=== PATIENT | female | born 1990 | race Caucasian/White ===

== ENCOUNTER 2024-08-09 10:07 | Emergency (ER) | payer SELFPAY ==
[2024-08-09 10:27] VITALS: BP 159/92; PULSE 93; RESP 15; TEMP 36.6; O2SAT 99; BMI 37.4
--- NOTE | 2024-08-09 14:14 | W.ED.BACK ---
HPI - Back Pain/Injury General: Chief Complaint: Back Pain/Injury Stated Complaint: back pain Time Seen by Provider: 08/09/24 11:23 Source: patient Mode of arrival: ambulatory Limitations: no limitations History of Present Illness: Patient is a 34-year-old female who presents to the ED today with a complaint of acute on chronic lower back pain. Patient states she recently moved from [place]. Patient states she has a longstanding history of lower back pain. Was doing physical therapy without relief. She states over the past several weeks she is now having pain radiating down her right leg and into her groin. She is not having any urinary retention or bowel incontinence. She feels like ambulating is getting harder. 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 She has not established with a primary care provider here in [place] yet. MD elicited complaint: back pain Pertinent past history: prior back pain Onset (ago): week(s) Timing: constant Severity: severe Similar Symptoms Previously: Yes Location: lumbar spine Radiation: buttocks and right upper leg Exacerbating factors: movement, walking and lifting Relieving factors: none Context: while lifting Associated symptoms: Reports no associated symptoms and difficulty walking; Deny abdominal pain, chills, dysuria, fatigue, fever(s), nausea, urinary urgency or vomiting Work related injury: No Related Data Previous Rx's Medication Instructions Recorded doxycycline hyclate 100 mg capsule 100 mg PO BID 14 days #28 caps 07/31/24 (Vibramycin) cyclobenzaprine 10 mg tablet 10 mg PO TID #14 tabs 08/09/24 ibuprofen 800 mg tablet 800 mg PO Q8H PRN pain #20 tabs 08/09/24 methylprednisolone 4 mg tablets in See Rx Instructions PO .COMPLEX 08/09/24 a dose pack (Medrol (Willem)) #21 ea Allergies Allergy/AdvReac Type Severity Reaction Status Date / Time No Known Allergies Allergy Unverified 07/31/24 17:42 Review of Systems Const: Denies: fever(s), chills, body aches, fatigue or malaise Card: Denies: chest pain Resp: Denies: dyspnea GI: Denies: abdominal pain, nausea, vomiting or diarrhea : Denies: flank pain, difficulty voiding, dysuria, urinary frequency, urinary urgency or urinary hesitancy Musc: Reports: back pain; Denies: neck pain, extremity pain, extremity swelling, joint pain or joint swelling Skin/Breast: Denies: rash Neuro: Reports: difficulty walking; Denies: numbness in extremities, weakness in extremities, sensory changes or lack of coordination PFSH ED PFSH: Social History Smoking and tobacco/nicotine status: never used tobacco/nicotine Physical Exam Const: COMMON NORMALS: no acute distress, patient oriented x3, no limitations, alert and well nourished GENERAL APPEARANCE: cooperative NUTRITIONAL APPEARANCE: obese (BMI 37.4) Back/Pelvis: THORACIC SPINE/UPPER BACK: No thoracic spinal tenderness and No paraspinal muscle tenderness LUMBAR SPINE/LOWER BACK: Yes lumbar spinal tenderness, No paraspinal muscle tenderness, Yes straight leg raise positive right and Yes straight leg raise positive left PELVIS: Yes buttocks normal and Yes sciatic notch tenderness SACROILIAC JOINTS: Yes SI joints normal SACRUM: no tenderness COCCYX: no tenderness Extremity: COMMON NORMALS: capillary refill normal, no clubbing, cyanosis or edema, no calf tenderness and no pedal edema GENERAL: Yes normal exam except as noted Neuro: COMMON NORMALS: patient oriented x3, moves all extremities, no focal motor deficits, no sensory deficits noted and gait normal SENSORIUM/ORIENTATION: Yes alert GAIT: Yes Normal gait present SENSORY EXAM: Yes other (sensory to bilateral LEs normal) MOTOR EXAM: 5/5 motor strength present throughout DEEP TENDON REFLEXES: Right patellar reflex intensity grade: 2+, Left patellar reflex intensity grade: 2+, Right ankle reflex intensity grade: 2+ and Left ankle reflex intensity grade: 2+ Skin: COMMON NORMALS: no rashes or lesions noted GENERAL SKIN EXAM: no rashes or lesions noted Course Vital Signs: Vital signs: Vital Signs Temperature 97.8 F 08/09/24 10:27 Pulse Rate 79 08/09/24 14:45 Respiratory Rate 16 08/09/24 14:45 Blood Pressure 166/122 08/09/24 14:45 Pulse Oximetry 97 08/09/24 14:45 Oxygen Delivery Me thod Room Air 08/09/24 10:27 MDM - Back Pain/Injury Medical Decision Making No red flags on patient's physical examination. CT scan showing degenerative changes. Will have her set up with primary care for further evaluation and treatment. Return precautions given. Differential Diagnosis Likely lumbar radiculopathy, sciatica and strain of lumbar region Medical Records I reviewed the patient's medical records. Labs Radiology Impressions Lumbar Spine CT 08/09/24 14:20 IMPRESSION: 1. Mild anterolisthesis at L5-S1 with bilateral L5 spondylolysis. 2. Degenerative changes at L5-S1 with moderate right and severe left-sided neural foraminal narrowing. Laboratory Results HCG, Qual Negative (Negative) 08/09/24 14:51 All radiology interpretation(s) finalized by discharge Discharge Plan Discharge Patient Disposition: Home Clinical Impression: Lumbar radiculopathy Condition: Stable Prescriptions: New cyclobenzaprine 10 mg tablet 10 mg PO TID Qty: 14 0RF ibuprofen 800 mg tablet 800 mg PO Q8H PRN (Reason: pain) Qty: 20 0RF Medrol (Willem) 4 mg tablets,dose pack See Rx Instructions .ROUTE .COMPLEX Qty: 21 0RF Rx Instructions: orally per package directions No Action doxycycline hyclate [Vibramycin] 100 mg capsule 100 mg PO BID 14 Days Qty: 28 0RF Discharge Orders: Discharge ED (Routine); Ordered 08/09/24 Ordered By: Cinda Gastelum Activity Restrictions/Additional Instructions: As we discussed, we have case management set you up with a primary care provider for further evaluation and management of your lower back pain. Coding Level of Care Code ED Wrapper Layer And Examiner Soft Work for Trent Simons
--- NOTE | 2024-08-09 14:20 | CTR_ITS ---
PROCEDURE INFORMATION: Exam: CT Lumbar Spine Without Contrast Exam date and time: 08/09/2024 2:55 PM Age: 34 years old Clinical indication: Low back pain; Additional info: Pain, trouble walking, R radiculopathy TECHNIQUE: Imaging protocol: Computed tomography of the lumbar spine without contrast. Radiation optimization: All CT scans at this facility use at least one of these dose optimization techniques: automated exposure control; mA and/or kV adjustment per patient size (includes targeted exams where dose is matched to clinical indication); or iterative reconstruction. COMPARISON: No relevant prior studies available. RADIATION DOSE METRICS: Total DLP (mGy-cm): 778 FINDINGS: Bones/joints: Mild anterolisthesis at L5-S1 with bilateral L5 spondylolysis. No fracture or bony destructive lesion. Very small right paracentral protrusion at L4-L5. Degenerative changes at L5-S1 with moderate right and severe left-sided neural foraminal narrowing. Soft tissues: Unremarkable. CT/CT lumbar spine wo con* [id number] IMPRESSION: 1. Mild anterolisthesis at L5-S1 with bilateral L5 spondylolysis. 2. Degenerative changes at L5-S1 with moderate right and severe left-sided neural foraminal narrowing.
[2024-08-09] MEDS: ketorolac 60 mg/2 mL INJ 30 MG IVP (14:40)
[2024-08-09] MEDS: dexamethasone 10 mg/mL INJ IVP (14:41)
[2024-08-09 14:45] VITALS: BP 166/122; PULSE 79; RESP 16; O2SAT 97
[2024-08-09 15:05] LABS: HCG Qualitative Urine. Negative (Negative)
[2024-08-09 15:55] VITALS: BP 146/97; PULSE 70; O2SAT 98
--- NOTE | 2024-08-10 07:24 | DCPLANNER ---
messaged wp fam med for er f/u
== END 2024-08-09 15:56 | disposition home or self-care (01) ==
PROVIDERS: Emergency Provider Physician Assistant
DX: M54.16 Radiculopathy, lumbar region (principal)
CPT/HCPCS: 72131; 81025; 96374; 96375; 99285; J1100; J1885

== ENCOUNTER → 2024-10-07 12:42 | Outpatient (BNVA) | payer OTHER, SELFPAY | PROVIDERS: Visit Provider Nurse Practitioner Family | DX: M79.641 Pain in right hand (principal); M25.441 Effusion, right hand | CPT/HCPCS: 73130 ==

== ENCOUNTER 2024-11-05 11:03 | Emergency (ER) | payer SELFPAY ==
--- NOTE | 2024-11-05 11:09 | ECG_ITS ---
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 Measurements Intervals [place] Rate: 89 P: 44 DC: 121 QRS: 34 QRSD: 100 T: 17 QT: 353 QTc: 431 Interpretive Statements SINUS RHYTHM No previous ECG available for comparison Electronically Signed On 11-05-2024 19:52:15 MANUFACTURING ENGINEERING TECHNICIAN by Marco King M.D. [id number]
[2024-11-05 11:23] VITALS: BP 128/71; PULSE 93; RESP 17; TEMP 36.7; O2SAT 97; BMI 35.6
--- NOTE | 2024-11-05 12:31 | XRR_ITS ---
PROCEDURE INFORMATION: Exam: XR Chest Exam date and time: 11/05/2024 1:33 PM Age: 34 years old Clinical indication: Pain; Angina pectoris; Additional info: Chest pain TECHNIQUE: Imaging protocol: Radiologic exam of the chest. Views: 1 view. COMPARISON: No relevant prior studies available. FINDINGS: Lungs: Unremarkable. No consolidation. Pleural spaces: Unremarkable. No pleural effusion. No pneumothorax. Heart/Mediastinum: Unremarkable. No cardiomegaly. Bones/joints: Unremarkable. XR/XR chest 1V portable [id number] IMPRESSION: No acute findings.
[2024-11-05 12:50] LABS: Basophils % 0.3 %; Eosinophils # 0.1 10^3/uL (0.0-0.8); Eosinophils % 1.5 %; Lymphocytes # 2.2 10^3/uL (0.8-4.8); Lymphocytes % 25.5 %; Mean Corpuscular HGB Conc 33.8 g/dL (30-55); Mean Corpuscular Volume 88.6 fl (85-98); Mean Platelet Volume 10.9 fL (7.4-10.4); Monocytes # 0.6 10^3/uL (0.2-0.9); Monocytes % 6.4 %; Neutrophils # 5.79 10^3/uL (1.8-7.7); Nucleated Red Blood Cells % 0 %; Platelet Count 148 10^3/cmm (157-399); Red Blood Count 4.74 10^6/uL (3.85-5.65); Red Cell Distribution Width 12.5 % (12.1-15.1); White Blood Count 8.78 10^3/uL (3.29-11.43)
[2024-11-05 13:09] LABS: Troponin(5th) Baseline 9 ng/L (0-10)
[2024-11-05 13:18] LABS: Alanine Aminotransferase 20 U/L (0-33); Albumin Level 4.4 g/dL (3.5-5.2); Alkaline Phosphatase 105 U/L (35-105); Anion Gap 13.5 (5-19); Aspartate Amino Transferase 19 U/L (0-32); Blood Urea Nitrogen 11 mg/dL (6-20); Calcium 8.7 mg/dL (8.5-10.5); Carbon Dioxide 25 mmol/L (22-29); Chloride 106 mmol/L (98-107); Creatinine Clr Calc Pharmacy 126.1379; Globulin 2.4 g/dL (1.3-4.6); Glomerular Filtration Rate 95.8 mL/min (90-130); Glucose 97 mg/dL (65-115); Osmolality Calculated 289 mOsm/kg (285-295); Potassium 4.5 mmol/L (3.5-5.1); Sodium 140 mmol/L (136-145); Total Bilirubin 0.7 mg/dL (0.15-1.2); Total Protein 6.8 g/dL (6.6-8.7)
--- NOTE | 2024-11-05 13:48 | W.ED.CHESTPA ---
HPI - Chest Pain General: Chief Complaint: Chest Pain Stated Complaint: cp Time Seen by Provider: 11/05/24 13:47 Source: patient Mode of arrival: ambulatory Limitations: no limitations History of Present Illness: Patient is a 34-year-old female presents to ED today with complaint of chest pain. Patient states she woke up around 4 AM this morning feeling like her left arm went numb. She states she initially thought it was secondary to how she was sleeping. Patient states around 9 AM she awoke with pain in the superior left chest. She is able to localize pain with 1-2 fingers. She states it is sharp and radiates straight through to her back. Pain seems to be worse with movement and palpation. She does not complain of feeling short of breath at rest however did notice she got a little winded when she was ambulating to the restroom. Denies recent illness. No recent surgeries. No risk factors for PE. Her vital signs are completely stable. Upon arrival to the emergency department, she appears in absolutely no acute distress. She is currently rating her pain at a 7/10. MD complaint: chest pain Onset (ago): hour(s) Timing of current episode: constant Prior episodes: No Onset: during rest Pain location: left chest Pain radiation: back and left scapula Severity: severe Pain scale (0-10): 7 Quality: sharp Relieving factors: nothing Exacerbating factors: movement Associated symptoms: Reports no associated symptoms; Deny abdominal pain, dyspnea, fever(s), nausea, palpitations, syncope or vomiting Treatment prior to arrival: none Risk Factors: Coronary artery disease risk factors: none Thoracic aortic dissection risk factors: none Related Data Home Medications Medication Instructions Recorded Confirmed No Known Home Medications 11/05/24 11/05/24 Allergies Allergy/AdvReac Type Severity Reaction Status Date / Time No Known Allergies Allergy Verified 10/20/24 12:56 Review of Systems Const: Denies: fever(s), chills, body aches, fatigue or malaise Card: Reports: chest pain and dyspnea on exertion; Denies: palpitations, irregular heart rhythm, edema, swelling of feet/ankles, lightheadedness, syncope, pre-syncope, orthopnea, leg pain with exertion or acrocyanosis Resp: Denies: dyspnea, productive cough, non-productive cough, wheezing, hemoptysis or chest congestion GI: Denies: abdominal pain, nausea, vomiting or diarrhea Musc: Denies: neck pain, back pain, extremity pain, extremity swelling, joint pain or joint swelling Skin/Breast: Denies: rash Neuro: Reports: numbness in extremities (L arm felt numb at 4am-this has resolved); Denies: headache(s), weakness in extremities, sensory changes, difficulty walking or dizziness PFSH ED PFSH: Social History Smoking and tobacco/nicotine status: never used tobacco/nicotine Physical Exam Const: COMMON NORMALS: no acute distress, patient oriented x3, no limitations, alert and well nourished GENERAL APPEARANCE: cooperative NUTRITIONAL APPEARANCE: overweight ORIENTATION/CONSCIOUSNESS: Yes awake, Yes oriented to person, Yes oriented to place and Yes oriented to time Neck/C-Spine: COMMON NORMALS: no JVD Chest: COMMONS NORMALS: normal inspection of the chest Chest images (female): 1. directly tender to palpation Resp: COMMON NORMALS: normal respiratory effort and clear to auscultation bilaterally AUSCULTATION: clear to auscultation bilaterally Cardio: COMMON NORMALS: no JVD, regular rate, regular rhythm and Peripheral pulses 2+ throughout RATE: regular rate RHYTHM: regular rhythm PERIPHERAL PULSES: Peripheral pulses 2+ throughout GI: COMMON NORMALS: Normal to inspection, nondistended, normoactive bowel sounds present, Soft to palpation and non-tender PALPATION: Yes Soft to palpation : COMMON NORMALS: Yes no CVA tenderness BLADDER/KIDNEY EXAM: Yes no CVA tenderness Back/Pelvis: COMMON NORMALS: no CVA tenderness, thoracic and lumbar spine normal to inspection, no thoracic nor lumbar tenderness, thoraco-lumbar ROM normal and straight leg raise negative bilaterally Extremity: COMMON NORMALS: normal to inspection, full ROM, capillary refill normal, no joint enlargement, no clubbing, cyanosis or edema, no calf tenderness and no pedal edema GENERAL: Yes normal exam except as noted Neuro: DAVID COMA SCALE: document GCS findings David coma scale eye opening: Spontaneous [place] coma scale verbal response: Orientated David coma scale motor response: Obey commands [place] coma scale total score: 15 COMMON NORMALS: patient oriented x3, CN's II-XII intact bilaterally, moves all extremities, no focal motor deficits, no sensory deficits noted and gait normal SENSORIUM/ORIENTATION: Yes alert, Yes oriented to person, Yes oriented to place and Yes oriented to time Skin: COMMON NORMALS: no rashes or lesions noted GENERAL SKIN EXAM: no rashes or lesions noted Course Vital Signs: Vital signs: Vital Signs Temperature 98.1 F 11/05/24 11:23 Pulse Rate 77 11/05/24 14:17 Respiratory Rate 16 11/05/24 14:17 Blood Pressure 120/93 11/05/24 14:17 Pulse Oximetry 98 11/05/24 14:17 Oxygen Delivery Me thod Room Air 11/05/24 14:17 MDM - Chest Pain Medical Decision Making Patient appears in no acute distress. Her vital signs are stable. ED workup including CBC, CMP, D-dimer, baseline and repeat troponins as well as baseline and repeat EKGs, CXR all of which are unremarkable. Pain is reproducible clinically with palpation. Suspect musculoskeletal chest wall pain. Patient will be cleared from an emergency standpoint with recommendations to follow-up with primary care next week. Return to ED precautions given. Medical Records I reviewed the patient's medical records. Lab Data I reviewed the patient's lab results. 11/05/24 12:44 11/05/24 12:44 Radiology Impressions Chest X-Ray 11/05/24 12:31 IMPRESSION: No acute findings. Laboratory Results WBC 8.78 10^3/uL (3.29-11.43) 11/05/24 12:44 RBC 4.74 10^6/uL (3.85-5.65) 11/05/24 12:44 Hgb 14.20 g/dL (11.27-16.99) 11/05/24 12:44 Hct 42.0 % (36-47) 11/05/24 12:44 MCV 88.6 fl (85-98) 11/05/24 12:44 MCH 30.0 pg (27-33) 11/05/24 12:44 MCHC 33.8 g/dL (30-55) 11/05/24 12:44 RDW 12.5 % (12.1-15.1) 11/05/24 12:44 Plt Count 148 10^3/cmm (157-399) L 11/05/24 12:44 MPV 10.9 fL (7.4-10.4) H 11/05/24 12:44 Neut % (Auto) 66.0 % 11/05/24 12:44 Lymph % (Auto) 25.5 % 11/05/24 12:44 [place] % (Auto) 6.4 % 11/05/24 12:44 Eos % (Auto) 1.5 % 11/05/24 12:44 Baso % (Auto) 0.3 % 11/05/24 12:44 Neut # (Auto) 5.79 10^3/uL (1.8-7.7) 11/05/24 12:44 Lymph # (Auto) 2.2 10^3/uL (0.8-4.8) 11/05/24 12:44 [place] # (Auto) 0.6 10^3/uL (0.2-0.9) 11/05/24 12:44 Eos # (Auto) 0.1 10^3/uL (0.0-0.8) 11/05/24 12:44 Baso # (Auto) 0.0 10^3/uL (0.0-0.1) 11/05/24 12:44 Nucleated RBC % (auto) 0 % 11/05/24 12:44 Nucleated RBCs # 0.0 /100WBC 11/05/24 12:44 D-Dimer 0.55 ug/mLFEU (0-0.59) 11/05/24 12:44 Sodium 140 mmol/L (136-145) 11/05/24 12:44 Potassium 4.5 mmol/L (3.5-5.1) 11/05/24 12:44 Chloride 106 mmol/L (98-107) 11/05/24 12:44 Carbon Dioxide 25 mmol/L (22-29) 11/05/24 12:44 Anion Gap 13.5 (5-19) 11/05/24 12:44 BUN 11 mg/dL (6-20) 11/05/24 12:44 Creatinine 0.7 mg/dL (0.5-0.9) 11/05/24 12:44 GFR Calculation 95.8 mL/min (90-130) 11/05/24 12:44 Glucose 97 mg/dL (65-115) 11/05/24 12:44 Calculated Osmolality 289 mOsm/kg (285-295) 11/05/24 12:44 Calcium 8.7 mg/dL (8.5-10.5) 11/05/24 12:44 Total Bilirubin 0.7 mg/dL (0.15-1.2) 11/05/24 12:44 AST 19 U/L (0-32) 11/05/24 12:44 ALT 20 U/L (0-33) 11/05/24 12:44 Alkaline Phosphatase 105 U/L (35-105) 11/05/24 12:44 Troponin T Baseline 9 ng/L (0-10) 11/05/24 12:44 Troponin T 120 Minute 8.64 ng/L (0-10) 11/05/24 14:13 Delta Troponin T -0.36 ABS# (0-10) L 11/05/24 14:13 Total Protein 6.8 g/dL (6.6-8.7) 11/05/24 12:44 Albumin 4.4 g/dL (3.5-5.2) 11/05/24 12:44 Globulin 2.4 g/dL (1.3-4.6) 11/05/24 12:44 All radiology interpretation(s) finalized by discharge Discharge Plan Discharge Patient Disposition: Home Clinical Impression: Atypical chest pain Condition: Stable Prescriptions: No Action No Known Home Medications Discharge Orders: Discharge ED (Routine); Ordered 11/05/24 Ordered By: Cinda Gastelum Referrals: Kelsey Busby FNP [Primary Care Provider] - Patient Instructions: Chest Pain - Noncardiac, Chest Pain - Chest Wall, Chest Pain (DC) Activity Restrictions/Additional Instructions: As we discussed, your emergency workup here was benign and you have been cleared from an emergency standpoint. If symptoms persist, I recommend following up with your primary care provider next week. You may return to the emergency department at anytime for any further concerns you may have. I hope you begin to feel better soon. Coding Level of Care Code ED Shell Molding Roller Blast Operator for Trent Simons
[2024-11-05 14:17] VITALS: BP 120/93; PULSE 77; RESP 16; O2SAT 98
[2024-11-05 14:34] LABS: D Dimer 0.55 ug/mLFEU (0-0.59)
[2024-11-05 14:37] LABS: Troponin 5 2HR 8.64 ng/L (0-10)
--- NOTE | 2024-11-05 14:37 | ECG_ITS ---
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 Measurements Intervals [place] Rate: 75 P: 41 NM: 141 QRS: 32 QRSD: 104 T: 17 QT: 396 QTc: 444 Interpretive Statements SINUS RHYTHM Compared to ECG 11/05/2024 11:09:26 No significant changes Electronically Signed On 11-05-2024 19:57:55 SLATE HANDLER by Marco King M.D. [id number]
[2024-11-05 14:39] LABS: Troponin 5 2HR Delta -0.36 ABS# (0-10)
[2024-11-05] MEDS: ketorolac 30 mg/mL INJ IVP (14:47)
[2024-11-05 15:17] VITALS: BP 133/77; PULSE 83; RESP 16; O2SAT 99
== END 2024-11-05 15:08 | disposition home or self-care (01) ==
PROVIDERS: Emergency Provider Physician Assistant; PCP Nurse Practitioner
DX: R07.89 Other chest pain (principal)
CPT/HCPCS: 36415; 71045; 80053; 84484; 85025; 85378; 93005; 96374; 99285; J1885

== ENCOUNTER → 2024-12-30 15:15 | Outpatient (BNVA) | payer MEDICAID, SELFPAY | PROVIDERS: PCP Nurse Practitioner; Visit Provider Nurse Practitioner | DX: S39.012A Strain of muscle, fascia and tendon of lower back, initial encounter (principal); M47.896 Other spondylosis, lumbar region; X58.XXXA Exposure to other specified factors, initial encounter | CPT/HCPCS: 72100 ==

== ENCOUNTER → 2025-01-20 15:34 | Outpatient (BNVA) | payer MEDICAID, SELFPAY | PROVIDERS: PCP Nurse Practitioner; Visit Provider Orthopaedic Surgery | DX: M47.816 Spondylosis without myelopathy or radiculopathy, lumbar region (principal); M54.9 Dorsalgia, unspecified | CPT/HCPCS: 72110 ==

== ENCOUNTER 2025-02-17 16:32 | Outpatient (CLI) | payer MEDICAID, SELFPAY ==
--- NOTE | 2025-02-17 16:45 | MR_ITS ---
WS: [id number] MRI LUMBAR SPINE NONCONTRAST TECHNIQUE: Sagittal T1, T2 and STIR imaging. Axial T1 and T2 imaging. CLINICAL INFORMATION: lumbar pain COMPARISON: None. FINDINGS: Mild lumbar curve. No acute compression. Grade 1 anterolisthesis L5 on S1. Disc bulging worse at L4-L5 and L5-S1. Small annular fissure at L4-5. Chronic spondylolysis L5-S1. L1-L2: Mild facet arthropathy. L2-L3: No significant disc bulging. Moderate facet arthropathy. Spinal canal and foramen are patent. L3-L4: Mild annular bulging. Mild facet arthropathy. Mild RIGHT foraminal narrowing. L4-L5: Slight retrolisthesis. Small central protrusion with a tiny annular fissure. Significant impingement on the subarticular recess bilaterally. Mild facet arthropathy. Mild bilateral foraminal narrowing. L5-S1: Grade 1 anterolisthesis with chronic spondylolysis. Central disc bulging with slight effacement of the ventral thecal sac. Mild facet arthropathy. Moderate LEFT foraminal narrowing with impingement on the exit LEFT L5 nerve root. Visualized pelvic bony structures: Normal. Paravertebral soft tissues: Normal. Retroverted and retroflexed uterus partially visualized. MR/MR lumbar spine wo con* [id number] IMPRESSION: 1. Grade 1 anterolisthesis L5 on S1 with chronic spondylolysis. 2. Disc bulging L5-S1 with slight effacement of the ventral thecal sac. LEFT f oraminal protrusion with impingement on the exiting LEFT L5 nerve root. 3. Disc bulge L4-5 with a small annular fissure. Significant impingement on th e LEFT greater than RIGHT subarticular recess and traversing L5 nerve roots. Mi ld LEFT greater than RIGHT foraminal narrowing. 4. Mild RIGHT L3-4 foraminal narrowing with a tiny RIGHT foraminal protrusion.
== END 2025-02-17 16:33 | disposition home or self-care (01) ==
LOC: RAD 16:34
PROVIDERS: PCP Nurse Practitioner; Visit Provider Orthopaedic Surgery
DX: M47.816 Spondylosis without myelopathy or radiculopathy, lumbar region (principal); S39.012A Strain of muscle, fascia and tendon of lower back, initial encounter; M79.604 Pain in right leg; M79.605 Pain in left leg; M43.07 Spondylolysis, lumbosacral region; M51.379 Other intervertebral disc degeneration, lumbosacral region without mention of lumbar back pain or lower extremity pain; M51.27 Other intervertebral disc displacement, lumbosacral region; M51.369 Other intervertebral disc degeneration, lumbar region without mention of lumbar back pain or lower extremity pain; R93.7 Abnormal findings on diagnostic imaging of other parts of musculoskeletal system; M43.8X6 Other specified deforming dorsopathies, lumbar region; M47.896 Other spondylosis, lumbar region; M51.26 Other intervertebral disc displacement, lumbar region; M48.061 Spinal stenosis, lumbar region without neurogenic claudication; M48.07 Spinal stenosis, lumbosacral region
CPT/HCPCS: 72148

== ENCOUNTER → 2025-02-24 15:14 | Outpatient (BNVA) | payer MEDICAID, SELFPAY | PROVIDERS: PCP Nurse Practitioner; Visit Provider Orthopaedic Surgery | DX: Z01.818 Encounter for other preprocedural examination (principal) | CPT/HCPCS: 36415; 80053; 81003; 85025 ==

== ENCOUNTER 2025-04-10 17:22 | Emergency (ER) | payer SELFPAY ==
[2025-04-10 17:24] VITALS: BP 147/93; PULSE 84; TEMP 36.8; O2SAT 100; BMI 37.8
--- NOTE | 2025-04-10 17:24 | XRR_ITS ---
PROCEDURE INFORMATION: Exam: XR Chest Exam date and time: 04/10/2025 6:10 PM Age: 34 years old Clinical indication: Chest pressure; C/O chest pain; Additional info: Cp TECHNIQUE: Imaging protocol: Radiologic exam of the chest. Views: 1 view. COMPARISON: CR XR chest 1V portable [id number] 11/05/2024 1:33 PM FINDINGS: Lungs: Unremarkable. No consolidation. Pleural spaces: Unremarkable. No pleural effusion. No pneumothorax. Heart/Mediastinum: Unremarkable. No cardiomegaly. Bones/joints: Unremarkable. XR/XR chest 1V portable [id number] IMPRESSION: No acute findings.
--- NOTE | 2025-04-10 17:30 | ECG_ITS ---
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
[2025-04-10 17:48] LABS: Basophils % 0.4 %; Eosinophils # 0.1 10^3/uL (0.0-0.8); Eosinophils % 0.9 %; Hematocrit 42.7 % (36-47); Lymphocytes # 2.9 10^3/uL (0.8-4.8); Lymphocytes % 30.6 %; Mean Corpuscular HGB Conc 34.2 g/dL (30-55); Mean Corpuscular Hemoglobin 30.4 pg (27-33); Mean Corpuscular Volume 88.8 fl (85-98); Mean Platelet Volume 10.8 fL (7.4-10.4); Monocytes # 0.7 10^3/uL (0.2-0.9); Neutrophils % 60.9 %; Nucleated Red Blood Cells % 0 %; Platelet Count 184 10^3/cmm (157-399); Red Blood Count 4.81 10^6/uL (3.85-5.65); Red Cell Distribution Width 12.4 % (12.1-15.1); White Blood Count 9.35 10^3/uL (3.29-11.43)
[2025-04-10 18:11] LABS: Alanine Aminotransferase 29 U/L (0-33); Albumin Level 4.8 g/dL (3.5-5.2); Alkaline Phosphatase 102 U/L (35-105); Anion Gap 18.2 (5-19); Aspartate Amino Transferase 26 U/L (0-32); Blood Urea Nitrogen 14 mg/dL (6-20); Calcium 9.7 mg/dL (8.5-10.5); Carbon Dioxide 23 mmol/L (22-29); Chloride 104 mmol/L (98-107); Creatinine Clr Calc Pharmacy 113.7763; Globulin 2.9 g/dL (1.3-4.6); Glomerular Filtration Rate 82.1 mL/min (90-130); Glucose 92 mg/dL (65-115); Lipase 36 U/L (13-60); Osmolality Calculated 292 mOsm/kg (285-295); Potassium 4.2 mmol/L (3.5-5.1); Sodium 141 mmol/L (136-145); Total Bilirubin 0.6 mg/dL (0.15-1.2); Total Protein 7.7 g/dL (6.6-8.7)
[2025-04-10 18:12] VITALS: BP 164/120; PULSE 86; RESP 24; O2SAT 99
[2025-04-10 18:12] LABS: Troponin(5th) Baseline 10 ng/L (0-10)
[2025-04-10 18:30] VITALS: BP 139/99; PULSE 74; RESP 16; O2SAT 98
--- NOTE | 2025-04-10 19:02 | ED_ITS ---
HPI - Chest Pain 2 General: Chief Complaint: Chest Pain Stated Complaint: chest pain Time Seen by Provider: 04/10/25 18:21 History of Present Illness: 34 year old female patient presents with acute chest pain that started last night around 7 PM. Describes pain as sharp and stabbing in nature, accompanied by chest tightness and dyspnea. 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 Pain is positionally dependent, worsening with position changes, particularly when standing up. Associated symptoms include significant dizziness, nausea with dry heaving, and previous episodes of diaphoresis two days ago. Denies hemoptysis. Past medical history notable for previous ED visit with cardiac workup, though patient unable to recall specific details. Social history includes previous vaping (quit several months ago), denies current tobacco use. Patient reports normally normal blood pressure. Significant psychosocial stressors present: Patient experiencing marital difficulties in a 21-year marriage, uncertain about relationship future. Has seven children aged 2-16 years, adding to current stress levels. Regular care established with Dr. Pavon but hasn't discussed current symptoms. Associated symptoms: Deny palpitations or syncope Related Data Previous Rx's ?Medication ?Instructions ?Recorded naproxen 500 mg tablet 500 mg PO BID #14 tabs 12/29 tizanidine 2 mg tablet 2 mg PO DAILY PRN muscle spasticity #14 tabs Bone Growth Stimulator #1 ea 03/07/25 Allergies Allergy/AdvReac Type Severity Reaction Status Date / Time No Known Allergies Allergy Verified 04/10/25 17:35 Review of Systems 2 General: Reports: 10 or more systems reviewed and unremarkable except in HPI and below Card: Reports: chest pain; Denies: palpitations, irregular heart rhythm, swelling of feet/ankles, syncope, dyspnea on exertion or orthopnea Resp: Denies: productive cough, pain on inspiration or hemoptysis PFSH ED 2 PFSH: Medical History Anterolisthesis of lumbar spine Social History Smoking and tobacco/nicotine status: unknown if used tobacco/nicotine Physical Exam 2 Narrative: EXAM NARRATIVE: No acute distress Chest: CHEST: No abnormal inspection of the chest, Yes Symmetrical chest wall rise and No localized rib tenderness with anteroposterior compression Resp: COMMON NORMALS: normal respiratory effort and No use of accessory muscles Cardio: COMMON NORMALS: regular rate, regular rhythm, S1 normal heart sound present and S2 normal heart sound present RATE: regular rate RHYTHM: r egular rhythm HEART SOUNDS: S1 normal heart sound present, S2 normal heart sound present and no murmurs GI: COMMON NORMALS: Normal to inspection, nondistended, normoactive bowel sounds present Skin: COMMON NORMALS: no rashes or lesions noted and turgor normal GENERAL SKIN EXAM: no rashes or lesions noted and turgor normal Course 2 Vital Signs: Vital signs: Vital Signs Temperature 98.2 F 04/10/25 17:24 Pulse Rate 74 04/10/25 18:30 Respiratory Rate 16 04/10/25 18:30 Blood Pressure 139/99 04/10/25 18:30 Pulse Oximetry 98 04/10/25 18:30 Oxygen Delivery Me thod Room Air 04/10/25 17:24 MDM - Chest Pain Medical Decision Making 1. Acute Chest Pain with Associated Symptoms - Presentation concerning for multiple potential etiologies including: * Acute coronary syndrome (less likely given presentation but requires rule-out) * Pulmonary embolism * Anxiety/Panic disorder with somatization Plan: - Immediate cardiac workup including cardiac enzymes - Basic metabolic panel - Monitor vital signs - Consider anxiolysis if workup negative 2. Hypertension (164/120) - Monitor blood pressure - Evaluate for end-organ damage - Consider acute stress vs. underlying hypertension 3. Psychosocial Stressors - Consider mental health resources and counseling referral - Follow-up with PCP Dr. Pavon recommended for ongoing management Medical Records Patient retort reports total resolution of her symptoms she is feeling well desires to go home. I reviewed her chest x-ray report which is normal her EKG is nonspecific or workup here with labs were mostly unremarkable. She is younger adult female without any significant cardiac history I think she is at low risk to discharge and have follow-up. I think likely most of her issues are secondary to stress and anxiety she got a very flat affect. I recommended follow-up with primary care. Lab Data 04/10/25 17:41 04/10/25 17:41 Radiology Impressions Chest X-Ray 04/10/25 17:24 IMPRESSION: No acute findings. Laboratory Results WBC 9.35 10^3/uL (3.29-11.43) 04/10/25 17:41 RBC 4.81 10^6/uL (3.85-5.65) 04/10/25 17:41 Hgb 14.60 g/dL (11.27-16.99) 04/10/25 17:41 Hct 42.7 % (36-47) 04/10/25 17:41 MCV 88.8 fl (85-98) 04/10/25 17:41 MCH 30.4 pg (27-33) 04/10/25 17:41 MCHC 34.2 g/dL (30-55) 04/10/25 17:41 RDW 12.4 % (12.1-15.1) 04/10/25 17:41 Plt Count 184 10^3/cmm (157-399) 04/10/25 17:41 MPV 10.8 fL (7.4-10.4) H 04/10/25 17:41 Neut % (Auto) 60.9 % 04/10/25 17:41 Lymph % (Auto) 30.6 % 04/10/25 17:41 [place] % (Auto) 7.0 % 04/10/25 17:41 Eos % (Auto) 0.9 % 04/10/25 17:41 Baso % (Auto) 0.4 % 04/10/25 17:41 Neut # (Auto) 5.70 10^3/uL (1.8-7.7) 04/10/25 17:41 Lymph # (Auto) 2.9 10^3/uL (0.8-4.8) 04/10/25 17:41 [place] # (Auto) 0.7 10^3/uL (0.2-0.9) 04/10/25 17:41 Eos # (Auto) 0.1 10^3/uL (0.0-0.8) 04/10/25 17:41 Baso # (Auto) 0.0 10^3/uL (0.0-0.1) 04/10/25 17: Nucleated RBC % (auto) 0 % 04/10/25 17: Nucleated RBCs # 0.0 /100WBC 04/10/25 17:41 Sodium 141 mmol/L (136-145) 04/10/25 17:41 Potassium 4.2 mmol/L (3.5-5.1) 04/10/25 17:41 Chloride 104 mmol/L (98-107) 04/10/25 17:41 Carbon Dioxide 23 mmol/L (22-29) 04/10/25 17:41 Anion Gap 18.2 (5-19) 04/10/25 17:41 BUN 14 mg/dL (6-20) 04/10/25 17:41 Creatinine 0.8 mg/dL (0.5-0.9) 04/10/25 17:41 GFR Calculation 82.1 mL/min (90-130) L 04/10/25 17:41 Glucose 92 mg/dL (65-115) 04/10/25 17:41 Calculated Osmolality 292 mOsm/kg (285-295) 04/10/25 17:41 Calcium 9.7 mg/dL (8.5-10.5) 04/10/25 17:41 Total Bilirubin 0.6 mg/dL (0.15-1.2) 04/10/25 17:41 AST 26 U/L (0-32) 04/10/25 17:41 ALT 29 U/L (0-33) 04/10/25 17:41 Alkaline Phosphatase 102 U/L (35-105) 04/10/25 17:41 Troponin T Baseline 10 ng/L (0-10) 04/10/25 17:41 Total Protein 7.7 g/dL (6.6-8.7) 04/10/25 17:41 Albumin 4.8 g/dL (3.5-5.2) 04/10/25 17:41 Globulin 2.9 g/dL (1.3-4.6) 04/10/25 17:41 Lipase 36 U/L (13-60) 04/10/25 17:41 All radiology interpretation(s) finalized by discharge ED provider radiology interpretation(s): No acute cardiopulmonary process Discharge Plan Discharge Patient Disposition: Home Clinical Impression: Costalchondritis, Atypical chest pain, Stress Condition: Stable Prescriptions: No Action naproxen 500 mg tablet 500 mg PO BID Qty: 14 0RF tizanidine 2 mg tablet 2 mg PO DAILY PRN (Reason: muscle spasticity) Qty: 14 0RF (DME) Bone Growth Stimulator See Rx Instructions .Route .MEDSUPPLY Qty: 1 0RF Rx Instructions: As directed Discharge Orders: Discharge ED (Routine); Ordered 04/10/25 Ordered By: Luca Okeefe Referrals: Kelsey Busby FNP [Primary Care Provider, Nurse Practitioner] Discharge Diet: Advance as tolerated Discharge Activity: Resume usual activity Patient Instructions: Opioid Safety, Pain Management Activity Restrictions/Additional Instructions: 1. Rest, fluids and trial of ibuprofen and/or naproxen to help treat symptoms. 2. Off work tomorrow can go back on Friday. 3. Schedule a follow-up this week with primary care to discuss ongoing treatment and evaluation. 4. Return to the emergency department for new or worsening symptoms. Print Language: Amharic Coding Level of Care Code ED Piping Designer for Trent Simons
[2025-04-10 19:59] VITALS: BP 137/91; PULSE 85; O2SAT 100
== END 2025-04-10 19:28 | disposition home or self-care (01) ==
PROVIDERS: Emergency Medicine; Emergency Provider Family Medicine; PCP Nurse Practitioner
DX: R07.89 Other chest pain (principal); F43.9 Reaction to severe stress, unspecified
CPT/HCPCS: 36415; 71045; 80053; 83690; 84484; 85025; 93005; 99285

== ENCOUNTER 2025-10-16 14:30 | Emergency (ER) | payer MEDICAID, SELFPAY ==
--- OUTSIDE RECORDS SUMMARY | 2025-10-16 14:37 | XMS_ITS | Patient Health Record ---
Author Organization [facility] Address [address] [place] [address] Support Name Relationship Address Phone NICKRICHIECLAYTONBRANDON Emergency Contact [address] [place] [address] HAYDEN GREENFIELD Guarantor Unknown ALLERGIES No Known Allergies REASON FOR REFERRAL No Information MEDICATIONS Medication SIG (Take, Route, Frequency, Duration) Notes Start Date End Date Status Aspir-Low 81 mg 1 tab(s) orally once a day Active labetalol 300 mg 1 tab(s) orally 3 ti mes a day Active [place] 250 mg/mL as directed intramus cularly once a week Active Multivitamins with dha any generic brand once daily po once daily Ac tive Norvasc 10 mg 1 tab(s) orally once a day for 90 days Active SOCIAL HISTORY Sex Assigned At : Social History Observation Description Sex Assigned At Unknown PROBLEMS Problem Type ICD Code Onset Dates Problem Status W/U Status Risk SNOMED Code Notes Problem Encounter for supervision of other normal , second trimester (Z34.82) Active confirmed Information temporarily unavailable Problem Screening in of Threaten Ab (O20.0) Active confirmed Information temporarily unavailable Problem Pre-existing hypertension affecting in first trimester (O10.911) Active confirmed Problem Pre-existing hypertension affecting in second trimester (O10.912) Active confirmed Information temporarily unavailable Problem Pre-existing essential hypertension complicating , third trimester (O10.013) Active confirmed Information temporarily unavailable PLAN OF TREATMENT Pending Test Test Name Order Date TSH 12/22/2020 CBC With Differential/Platelet 1 Hgb Solubility 12/22/2020 ABO Grouping and Rho(D) Typing 1 RPR 12/22/2020 Rubella Antibodies, IgG 12/22/2020 Varicella-Zoster V Ab, IgG 12/22/2020 Gest. Diabetes 1-Hr Screen 04/23/2021 Comp. Metabolic Panel (14) 12/22/2020 Cystic Fibrosis Profile 12/22/2020 AFP Tetra - Quad 02/27/2021 Panel [id number] 12/22/2020 Group B Strep (GBS) by Real-Time PCR 07/2021 Leukorrhea Panel by Real-Marquis e PCR (N. gonorrhoeae (reflex to antibiotic resistance), C. trachomatis, T. vaginalis ) 06/25/2021 Leukorrhea Panel by Real-Marquis e PCR (N. gonorrhoeae (reflex to antibiotic resistance), C. trachomatis, T. vaginalis ) 12/22/2020 UA/M w/rflx Culture, Routine 12/22/2020 Med List Option Not Selected 12/22/2020 [id number] 12/22/2020 Insurance Providers Payer Name Payer Address Payer Phone Subscriber Number Group Number Insured Name Patient Relationship to Insured Coverage Start Date Coverage End Date [employer] [address] [address] [place] [address] [id number] HAYDEN ZENG Self - patient is the insured 1 MEDICAID ([facility]) [address] [place] [address] [phone] [id number] HAYDEN ZENG Self - patient is the insured 1 MEDICAL (GENERAL) HISTORY Medical History History ICD Code GA HTN Surgical History Surgery Date(Month/Year) Hospitalization History Reason Date(Month/Year)
--- OUTSIDE RECORDS SUMMARY | 2025-10-16 14:37 | XMS_ITS | Clinical Summary ---
Author Organization [facility] Address [address] [place] [address] Phone Care Team Providers Care Audit Officer Name Role Phone Unavailable Primary Care Provider Unavailabl e Allergies No known active allergies Medications No known medications Social History Tobacco Use Types Packs/Day Years Used Date Smoking Tobacco: Never Assessed Feeling Safe Answer Date Recorded Are you in a relationship wi th someone who hurts you emotionally and/or physically? No 04/27/2024 Comments Unknown Sex and Gender Information Value Date Recorded Sex Assigned at Not on file Legal Sex Female 2:21 PM CDT Gender Identity Not on file Sexual Orientation Not on file Last Filed Vital Signs Vital Sign Reading Time Taken Comments Blood Pressure 152/100 04/27/2024 2:31 PM CDT Pulse 94 04/27/2024 2:31 PM CDT Temperature 36.8 C (98.3 F) 04/27/2024 2:31 PM CDT Respiratory Rate 16 04/27/2024 2:31 PM CDT Oxygen Saturation 98% 04/27/2024 2:31 PM CDT Inhaled Oxygen Concentration - - Weight 98.9 kg (218 lb) 04/27/2024 2:31 PM CDT Height 162.6 cm (5' 4 ) 04/27/2024 2:31 PM CDT Body Mass Index 37.42 04/27/2024 2:31 PM CDT Plan of Treatment Health Maintenance Due Date Last Done Comments DTAP/TDAP/TD VACCINES (1 - Tdap) 2009 HEPATITIS B VACCINES (1 of 3 - 19+ 3-dose series) 07/19 HPV/Cotest (21-29) 2011 HPV VACCINES (1 - 3-dose SCDM series) 2017 CERVICAL CANCER SCREENING 2020 HPV/Cotest (30-65) 2020 PAP SMEAR 2020 INFLUENZA VACCINE (#1) 2025 Insurance * Guarantor: Alejandra Frederick Account Type Relation to Patient Date of Phone Billing Address Personal/Family Self 1990 [address] [place] [address] [facility] MEDICAID
--- OUTSIDE RECORDS SUMMARY | 2025-10-16 14:37 | XMS_ITS | Patient Health Record ---
Author Organization [facility] Address [address] [place] [address] Care Team Providers Care Tune Up Mechanic Name Role Phone Tere Neely Unavailable [phone] Kenneth SABILLON, Emad Unavailable Unavailable Reason For Referral No Information Medications Medication SIG (Take, Route, Frequency, Duration) Notes Start Date End Date Status Labetalol HCl 300 MG Tablet 1 tablet Orally Twice a day; Duration: 30 day(s) TID Active Aspirin 81 81 MG Tablet Chewable 1 tablet Orally Once a day; Duration: 30 day(s) Active PNV Active Plan Of Treatment No Information Insurance Providers Payer Name Payer Address Payer Phone Subscriber Number Group Number Insured Name Patient Relationship to Insured Coverage Start Date Coverage End Date [employer] [address] [address] [place] [address] [id number] HAYDEN ZENG Self - patient is the insured
[2025-10-16 14:55] VITALS: BP 165/89; PULSE 98; RESP 18; TEMP 37.2; O2SAT 98; BMI 33.5
--- NOTE | 2025-10-16 15:13 | XRR_ITS ---
PROCEDURE INFORMATION: Exam: XR Lumbosacral Spine Exam date and time: 10/16/2025 3:28 PM Age: 35 years old Clinical indication: Low back pain; Additional Info: midline pain TECHNIQUE: Imaging protocol: Radiologic exam of the lumbosacral spine. Views: 2 or 3 views. COMPARISON: 1. MR lumbar spine wo con* [id number] 02/17/2025 4:46 PM 2. CR XR lumbar spine min 4V [id number] 01/20/2025 3:36 PM FINDINGS: Bones/joints: 5 [id number] lumbar vertebrae. There is no acute fracture or dislocation. No blastic or lytic bone lesions are present. 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 There is a grade 0-1 spondylolisthesis. Overall spinal alignment is otherwise normal. Soft tissues: Unremarkable. Intraperitoneal space: Surgical clips are present in the right upper quadrant. Organs: No urinary tract stones are appreciated. XR/XR lumbar spine 2-3V* [id number] IMPRESSION: 1. 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 There is a grade 0-1 spondylolisthesis. This is unchanged from previous CT dated July 2024. 2. No acute findings.
--- NOTE | 2025-10-16 15:20 | ED_ITS ---
HPI - Back Pain/Injury General: Chief Complaint: Back Pain/Injury Stated Complaint: lower back pain Time Seen by Provider: 10/16/25 15:00 History of Present Illness: Patient is a pleasant 35-year-old female with history of previous back fracture at age 20, presents to the ED with worsening back pain. Context: As noted she has a previous back fracture at age 20. Over the last few months, she has had worsening pain to her low back. She initially had set up for surgery [address] Miller, however due to her multiple social issues, 7 children, she was unable to accomplish this task. She states the last few weeks, this has gotten worse. 2 weeks ago, she moved wrong, and she felt a pop. She states her low back is vesx-by-lias. She has numbness to her left great toe. She has weakness to her left dorsum of her foot. She has some weakness in her right foot, however left is worse. She does not have any numbness on her upper legs or groin. She is not having any incontinence, dysuria, polyuria. She is not having any fevers. She has discussed different modalities with Dr. Miller, including injections. According to patient, orthopedist did not believe injections would help her issue given her low back pain complaints. Best option was for decompression/PLIF. 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 This does not help the situation. Patient also complained of upper respiratory symptoms with runny nose. No ear pain. No sore throat. No fevers. Associated symptoms: Deny abdominal pain, dysuria, nausea, syncope or vomiting Related Data Previous Rx's ?Medication ?Instructions ?Recorded naproxen 500 mg tablet 500 mg PO BID #14 tabs 12/29 tizanidine 2 mg tablet 2 mg PO DAILY PRN muscle spasticity #14 tabs Bone Growth Stimulator #1 ea 03/07/25 methocarbamol 750 mg tablet 750 mg PO Q8H PRN muscle s pasm #30 10/16/25 tabs methylprednisolone 4 mg tablets in See Rx Instructions PO .COMPLEX 10/16/25 a dose pack (Medrol (Willem)) #21 ea Allergies Allergy/AdvReac Type Severity Reaction Status Date / Time No Known Allergies Allergy Verified 10/16/25 14:58 Review of Systems General: Reports: 10 or more systems reviewed and unremarkable except in HPI and below Card: Reports: chest pain; Denies: palpitations, irregular heart rhythm, swelling of feet/ankles, syncope, dyspnea on exertion or orthopnea Resp: Denies: productive cough, pain on inspiration or hemoptysis GI: Denies: abdominal pain, nausea or vomiting : Denies: flank pain, difficulty voiding, dysuria, urinary frequency, dribbling or urinary incontinence Musc: Reports: back pain, joint pain, limited range of motion and muscle cramps; Denies: neck pain, extremity pain, extremity swelling or joint swelling Skin/Breast: Denies: rash or pruritus Neuro: Reports: numbness in extremities and weakness in extremities; Denies: headache(s) or sensory changes PFSH ED PFSH: Medical History (Updated 10/16/25 @ 17:29 by MARCELLA Jon) Anterolisthesis of lumbar spine Social History Smoking and tobacco/nicotine status: unknown if used tobacco/nicotine Physical Exam Narrative: EXAM NARRATIVE: No acute distress Const: COMMON NORMALS: no acute distress, average body habitus, patient orie nted x3, no limitations, healthy appearing, alert and well nourished HENMT: COMMON NORMALS: normocephalic, atraumatic, hearing grossly normal bila terally, external ears normal, EAC's normal, TM's normal bilaterally, Normal external nose present, Normal nasal mucous membranes and turbinates present, moist oral mucous membranes, oropharynx normal, dentition normal and gingiva normal HEAD & SCALP: normocephalic and atraumatic NOSE: Normal external nose present, Normal nasal mucous membranes and turbinates present and Nasal polyp present Nasal polyp laterality: right EXTERNAL EAR: Yes external ears normal EXTERNAL AUDITORY CANAL: EAC's normal TYMPANIC MEMBRANE: TM's normal bilaterally Neck/C-Spine: COMMON NORMALS: full ROM, no lymphadenopathy, supple and no meningeal signs Chest: CHEST: No abnormal inspection of the chest, Yes Symmetrical chest wall rise and No localized rib tenderness with anteroposterior compression Resp: COMMON NORMALS: normal respiratory effort and No use of accessory muscles Cardio: COMMON NORMALS: regular rate, regular rhythm, S1 normal heart sound present and S2 normal heart sound present RATE: regular rate RHYTHM: regular rhythm HEART SOUNDS: S1 normal heart sound present, S2 normal heart sound present and no murmurs GI: COMMON NORMALS: Normal to inspection, nondistended, normoactive bowel sounds present : COMMON NORMALS: Yes no CVA tenderness BLADDER/KIDNEY EXAM: Yes no CVA tenderness Back/Pelvis: COMMON NORMALS: no CVA tenderness LUMBAR SPINE/LOWER BACK: Yes pain with ROM and Yes lumbar spinal tenderness Lumbar spinal tenderness location: L2, L3, L4 and L5 PELVIS: Yes buttocks normal SACROILIAC JOINTS: Yes SI joint(s) abnormal (Bilateral left> right) COCCYX: no swelling and no tenderness Neuro: COMMON NORMALS: patient oriented x3 SENSORIUM/ORIENTATION: Yes alert MENINGEAL SIGNS: Yes no meningeal signs Skin: COMMON NORMALS: no rashes or lesions noted and turgor normal GENERAL SKIN EXAM: no rashes or lesions noted and turgor normal Course Vital Signs: Vital signs: Vital Signs Temperature 99.0 F 10/16/25 14:55 Pulse Rate 98 10/16/25 14:55 Respiratory Rate 18 10/16/25 14:55 Blood Pressure 165/89 10/16/25 14:55 Pulse Oximetry 98 10/16/25 14:55 MDM - Back Pain/Injury Medical Decision Making Patient is a pleasant 35-year-old female that reports to the emergency room with midline lumbar tenderness. She has SI joint tenderness bilateral, left greater than right. Due to her recent pop with movement, and midline tenderness, will obtain routine lumbar films. Discussed with patient my concern of needing surgery. She is not having any concern for ELLA at this time, however certainly is at high risk for it, and most likely needs imminent decompression/PLIF. I have discussed social aspects that we will need to be organized, because the surgery needs to be done or at least discussion with the medical professional. Patient states understanding. She understands that she will have some relief from therapy today with Norflex, Toradol, dexamethasone, and offered [place] x 1. She does have realistic expectations and concerns. Medical Records I reviewed the patient's medical records. Labs Radiology Impressions Lumbar Spine X-Ray 10/16/25 15:13 IMPRESSION: 1. 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 There is a grade 0-1 spondylolisthesis. This is unchanged from previous CT dated July 2024. 2. No acute findings. Laboratory Results HCG, Qual Negative (Negative) 10/16/25 15:17 Urine Color Yellow (Yellow) 10/16/25 15:17 Urine Appearance Cloudy (CLEAR) A 10/16/25 15:17 Urine pH 6.5 (5-7) 10/16/25 15:17 Ur Specific [place] 1.023 (1.005-1.030) 10/16/25 15:17 Urine Protein Negative (Negative) 10/16/25 15:17 Urine Glucose (UA) Negative (Normal) 10/16/25 15:17 Urine Ketones Negative (Negative) 10/16/25 15:17 Urine Blood Negative (Negative) 10/16/25 15:17 Urine Nitrate Negative (Negative) 10/16/25 15:17 Urine Bilirubin Negative (Negative) 10/16/25 15:17 Urine Urobilinogen 1.0 mg/dL (Negative) 10/16/25 15:17 Ur Leukocyte Esterase 1+ (Negative) A 10/16/25 15:17 Urine RBC 0-2 /hpf (0-2) 10/16/25 15:17 Urine WBC 11-20 /hpf (0-5) H 10/16/25 15:17 Ur Squamous Epith Cells 6-10 /hpf (0-5) 10/16/25 15:17 Amorphous Sediment Not Reportable 10/16/25 15:17 Urine Bacteria Trace /hpf (NONE) 10/16/25 15:17 Hyaline Casts 0.40 /lpf 10/16/25 15:17 All radiology interpretation(s) finalized by discharge Discharge Plan Discharge Patient Disposition: Home Clinical Impression: Lumbar radiculopathy, Sciatica, Spondylolisthesis at L4-L5 level Condition: Stable Prescriptions: New methylprednisolone [Medrol (Willem)] 4 mg tablets,dose pack See Rx Instructions .ROUTE .COMPLEX Qty: 21 0RF Rx Instructions: for 6 days methocarbamol 750 mg tablet 750 mg PO Q8H PRN (Reason: muscle spasm) Qty: 30 0RF No Action naproxen 500 mg tablet 500 mg PO BID Qty: 14 0RF tizanidine 2 mg tablet 2 mg PO DAILY PRN (Reason: muscle spasticity) Qty: 14 0RF (DME) Bone Growth Stimulator See Rx Instructions .Route .MEDSUPPLY Qty: 1 0RF Rx Instructions: As directed Discharge Orders: Discharge ED (Routine); Ordered 10/16/25 Ordered By: Radha Marroquin Referrals: Tj Miller DO [Physician, Orthopedics] - 1-3 days Clinical Impression: Lumbar radiculopathy Kelsey Busby FNP [Primary Care Provider, Nurse Practitioner] Discharge Diet: Usual diet Discharge Activity: Limit activity as instructed Patient Instructions: Sinusitis (ED), Acute Low Back Pain (ED), Patient Portal & [place] Instructions Activity Restrictions/Additional Instructions: - For your sinusitis: Intake Flonase, Astepro, 2 sprays in each nose twice daily. Add an antihistamine [id number], long-acting, such as Claritin, Zyrtec, Daisha, or Xyzal, any of those generic, and take twice daily to control your symptoms. - At the pharmacy: Medrol Dosepak, methocarbamol/Robaxin muscle relaxer. - As far as your back, we discussed getting back into Dr. Miller and discussing surgical options. This is important for what is going on at this time. It is also important to preserve your back structure now and after surgery with the limitations. Please follow these limitations as your back is important. Ice will help with some relief immediately. These medications will help with some relief immediately. This is not a cure all. Stretches will help as well. Ty lenol schedule III times a day with the other medications can help with pain relief. - Make sure you return to the ED if you do have incontinence of urine, feces, or groin numbness. Thank you for choosing [facility] for your healthcare needs today. You have been screened and evaluated and felt safe for discharge. Health conditions do change or evolve sometimes and as such it is important that you follow up with your Primary Doctor to be re checked, 3-5 days is a general good time frame for follow up. You are always welcome to return to the ED for re assessment if your symptoms are worsening or you have new concerns Stand Alone Forms: Work/School Release Print Language: German Coding Level of Care Code ED Automobile Salesman for Trent Simons
[2025-10-16 15:24] LABS: Glucose Urine UA Negative (Normal); HCG Qualitative Urine. Negative (Negative); Nitrate Urine Negative (Negative); Specific Gravity, Urine 1.023 (1.005-1.030)
[2025-10-16 15:29] LABS: Add Urine Microscopic? YES
[2025-10-16] MEDS: orphenadrine 30 mg/mL Inj 2 mL 60 MG IM (15:30)
[2025-10-16] MEDS: HYDROcodone-acetaminophen 5-325 mg Tablet 1 TAB PO (16:10)
--- NOTE | 2025-10-17 12:50 | DCPLANNER ---
messaged ortho for er f/u
== END 2025-10-16 16:12 | disposition home or self-care (01) ==
PROVIDERS: Emergency Medicine; Emergency Provider Physician Assistant; PCP Nurse Practitioner
DX: M54.16 Radiculopathy, lumbar region (principal); M54.30 Sciatica, unspecified side; M43.06 Spondylolysis, lumbar region
CPT/HCPCS: 72100; 81001; 81025; 96372; 99284; J1100; J1885; J2360; J9999

== ENCOUNTER → 2025-10-25 15:13 | Outpatient (BNVA) | payer MEDICAID, SELFPAY | PROVIDERS: PCP Nurse Practitioner; Visit Provider Orthopaedic Surgery | DX: Z01.818 Encounter for other preprocedural examination (principal); M43.16 Spondylolisthesis, lumbar region; M54.16 Radiculopathy, lumbar region; M43.17 Spondylolisthesis, lumbosacral region; M47.816 Spondylosis without myelopathy or radiculopathy, lumbar region | CPT/HCPCS: 72050; 72110; 80053; 81001; 85025; 87086 ==

== ENCOUNTER 2025-11-04 22:43 | Emergency (ER) | payer MEDICAID, SELFPAY ==
[2025-11-04 22:45] VITALS: BP 127/79; PULSE 87; RESP 16; TEMP 36.5; O2SAT 97; BMI 34.3
--- OUTSIDE RECORDS SUMMARY | 2025-11-04 23:01 | XMS_ITS | Patient Health Record ---
Author Organization [facility] Address [address] [place] [address] Care Team Providers Care Caster Helper Name Role Phone Tere Neely Unavailable [phone] Kenneth SABILLON, Emad Unavailable Unavailable Reason For [...] Coverage End Date [employer] [address] [address] [place] [address] [phone] [id number] HAYDEN ZENG Self - patient is the insured
--- OUTSIDE RECORDS SUMMARY | 2025-11-04 23:02 | XMS_ITS | Clinical Summary ---
Author Organization [facility] Address [address] [place] [address] Phone Care Team Providers Care Architect Name Role Phone Unavailable Primary Care Provider [...] 19+ 3-dose series) 07/19 HPV/Cotest (21-29) 2011 CERVICAL CANCER SCREENING 2020 HPV/Cotest (30-65) 2020 PAP SMEAR 2020 INFLUENZA VACCINE (#1) 2025 HPV VACCINES (No Doses Required) Completed Insurance [facility] MEDICAID
--- NOTE | 2025-11-04 23:07 | XRR_ITS ---
PROCEDURE INFORMATION: Exam: XR Lumbosacral Spine Exam date and time: 11/04/2025 11:16 PM Age: 35 years old Clinical indication: C/O low back pain with bladder spasm. Scheduled for lumbar surgery in 2025. TECHNIQUE: Imaging protocol: Radiologic exam of the lumbosacral spine. Views: 2 or 3 views. COMPARISON: CR XR lumbar spine min 4V [id number] 10/25/2025 3:17 PM FINDINGS: Bones/joints: No acute lumbar spine compression fracture. Soft tissues: Unremarkable. Organs: Cholecystectomy. XR/XR lumbar spine 2-3V* [id number] IMPRESSION: No acute lumbar spine compression fracture.
[2025-11-04] MEDS: orphenadrine 30 mg/mL Inj 2 mL 60 MG IM (23:25)
[2025-11-04 23:30] LABS: Glucose Urine UA Negative (Normal); Nitrate Urine Negative (Negative); Specific Gravity, Urine 1.022 (1.005-1.030)
[2025-11-04 23:35] LABS: Add Urine Microscopic? YES
--- NOTE | 2025-11-04 23:44 | W.ED.BACK ---
HPI - Back Pain/Injury General: Chief Complaint: Back Pain/Injury Stated Complaint: back pain hard to walk-surg sched for sujatha Time Seen by Provider: 11/04/25 23:14 History of Present Illness: Patient is a 35-year-old female with known lumbar spondylolisthesis, reports to the emergency room today due to low back pain. This has been worsening over the last few days, associated with bladder spasms. No groin numbness. She has seen Ortho neuro specialty, Dr. Miller, and has surgery scheduled 11/21 for decompression, L4/S1 spinal fusion. No sensation changes today. The main issue is bladder spasms with the associated back pain. Associated symptoms: Deny abdominal pain, chills, fever(s), nausea or vomiting Related Data Previous Rx's ?Medication ?Instructions ?Recorded naproxen 500 mg tablet 500 mg PO BID #14 tabs 12/29/24 tizanidine 2 mg tablet 2 mg PO DAILY PRN muscle 01/06/25 spasticity #14 tabs Bone Growth Stimulator #1 ea 03/07/25 methocarbamol 750 mg tablet 750 mg PO Q8H PRN muscle spasm #30 10/16/25 tabs methylprednisolone 4 mg tablets in See Rx Instructions PO .COMPLEX 10/16/25 a dose pack (Medrol (Willem)) #21 ea gabapentin 300 mg capsule 300 mg PO BEDTIME 1 day #30 caps 11/05/25 Allergies Allergy/AdvReac Type Severity Reaction Status Date / Time No Known Allergies Allergy Verified 11/04/25 22:49 Review of Systems General: Reports: 10 or more systems reviewed and unremarkable except in HPI and below Const: Denies: fever(s) or chills Card: Denies: chest pain or orthopnea Resp: Denies: dyspnea, productive cough or wheezing GI: Denies: abdominal pain, nausea or vomiting Musc: Reports: joint pain, joint swelling, joint stiffness and limited range of motion Skin/Breast: Denies: rash, pruritus or dry skin Neuro: Denies: numbness in extremities or weakness in extremities Psych: Denies: anxiety Nithin/Lymph: Denies: easy bruising or easy bleeding PFS ED PFSH: Medical History (Updated 11/04/25 @ 23:49 by MARCELLA Jon) Anterolisthesis of lumbar spine Social History (Reviewed 10/25/25 @ 11:50 by Williams Kilgore Smoking and tobacco/nicotine status: unknown if used tobacco/nicotine Physical Exam Narrative: EXAM NARRATIVE: No acute distress Const: COMMON NORMALS: no acute distress, average body habitus, patient oriented x3, no limitations, healthy appearing, alert and well nourished HENMT: COMMON NORMALS: normocephalic, atraumatic, hearing grossly normal bilaterally, external ears normal, EAC's normal, TM's normal bilaterally, Normal external nose present, Normal nasal mucous membranes and turbinates present, moist oral mucous membranes, oropharynx normal, dentition normal and gingiva normal HEAD & SCALP: normocephalic and atraumatic NOSE: Normal external nose present, Normal nasal mucous membranes and turbinates present and Nasal polyp present Nasal polyp laterality: right EXTERNAL EAR: Yes external ears normal EXTERNAL AUDITORY CANAL: EAC's normal TYMPANIC MEMBRANE: TM's normal bilaterally Neck/C-Spine: COMMON NORMALS: full ROM, no lymphadenopathy, supple and no meningeal signs Chest: CHEST: No abnormal inspection of the chest, Yes Symmetrical chest wall rise and No localized rib tenderness with anteroposterior compression Resp: COMMON NORMALS: normal respiratory effort and No use of accessory muscles Cardio: COMMON NORMALS: regular rate, regular rhythm, S1 normal heart sound present and S2 normal heart sound present RATE: regular rate RHYTHM: regular rhythm HEART SOUNDS: S1 normal heart sound present, S2 normal heart sound present and no murmurs GI: COMMON NORMALS: Normal to inspection, nondistended, normoactive bowel sounds present : COMMON NORMALS: Yes no CVA tenderness BLADDER/KIDNEY EXAM: Yes no CVA tenderness Back/Pelvis: COMMON NORMALS: no CVA tenderness THORACIC SPINE/UPPER BACK: Yes normal to inspection and Yes thoracic ROM normal LUMBAR SPINE/LOWER BACK: Yes pain with ROM, Yes lumbar spinal tenderness Lumbar spinal tenderness location: L2, L3, L4 and L5, Yes paraspinal muscle tenderness and No mass present PELVIS: Yes buttocks normal SACROILIAC JOINTS: Yes SI joints normal COCCYX: no swelling and no tenderness Neuro: COMMON NORMALS: patient oriented x3 SENSORIUM/ORIENTATION: Yes alert MENINGEAL SIGNS: Yes no meningeal signs Skin: COMMON NORMALS: no rashes or lesions noted and turgor normal GENERAL SKIN EXAM: no rashes or lesions noted and turgor normal Course Vital Signs: Vital signs: Vital Signs Temperature 97.7 F 11/04/25 22:45 Pulse Rate 87 11/04/25 22:45 Respiratory Rate 16 11/04/25 22:45 Blood Pressure 127/79 11/04/25 22:45 Pulse Oximetry 97 11/04/25 22:45 Oxygen Delivery Me thod Room Air 11/04/25 22:45 MDM - Back Pain/Injury Medical Decision Making Patient is 35-year-old female reports to the emergency room with worsening low back pain, bladder spasms. Urine is benign. She is improved after Toradol, Norflex. X-ray does not show any changes. She does not have any bladder incontinence, numbness to your groin. No red flags. Patient will call on Friday to follow-up with Dr. Miller, and return to the emergency room if she has any of the symptoms occur. Medical Records I reviewed the patient's medical records. Labs I reviewed the patient's lab results. Radiology Impressions Lumbar Spine X-Ray 11/04/25 23:07 IMPRESSION: No acute lumbar spine compression fracture. Laboratory Results Urine Color Yellow (Yellow) 11/04/25 23:21 Urine Appearance Turbid (CLEAR) A 11/04/25 23:21 Urine pH 7.0 (5-7) 11/04/25 23:21 Ur Specific [place] 1.022 (1.005-1.030) 11/04/25 23:21 Urine Protein Negative (Negative) 11/04/25 23:21 Urine Glucose (UA) Negative (Normal) 11/04/25 23:21 Urine Ketones Negative (Negative) 11/04/25 23:21 Urine Blood Negative (Negative) 11/04/25 23:21 Urine Nitrate Negative (Negative) 11/04/25 23:21 Urine Bilirubin Negative (Negative) 11/04/25 23:21 Urine Urobilinogen 1.0 mg/dL (Negative) 11/04/25 23:21 Ur Leukocyte Esterase Negative (Negative) 11/04/25 23:21 Urine RBC 3-5 /hpf (0-2) 11/04/25 23:21 Urine WBC 0-5 /hpf (0-5) 11/04/25 23:21 Ur Squamous Epith Cells 0-5 /hpf (0-5) 11/04/25 23:21 Amorphous Sediment Not Reportable 11/04/25 23:21 Urine Bacteria None seen /hpf (NONE) 11/04/25 23:21 Hyaline Casts 0-4 /lpf H 11/04/25 23:21 All radiology interpretation(s) finalized by discharge ED provider radiology interpretation(s): No acute compression fracture Spondylolisthesis showed on my view without change from 10/25 Discharge Plan Discharge Patient Disposition: Home Clinical Impression: Spondylolisthesis at L5-S1 level Condition: Stable Prescriptions: New gabapentin 300 mg capsule 300 mg PO BEDTIME 1 Days Qty: 30 0RF No Action naproxen 500 mg tablet 500 mg PO BID Qty: 14 0RF tizanidine 2 mg tablet 2 mg PO DAILY PRN (Reason: muscle spasticity) Qty: 14 0RF (DME) Bone Growth Stimulator See Rx Instructions .Route .MEDSUPPLY Qty: 1 0RF Rx Instructions: As directed methylprednisolone [Medrol (Willem)] 4 mg tablets,dose pack See Rx Instructions .ROUTE .COMPLEX Qty: 21 0RF Rx Instructions: for 6 days methocarbamol 750 mg tablet 750 mg PO Q8H PRN (Reason: muscle spasm) Qty: 30 0RF Discharge Orders: Discharge ED (Routine); Ordered 11/05/25 Ordered By: Radha Marroquin Discharge Diet: Usual diet Discharge Activity: Limit activity as instructed Patient Instructions: Acute Low Back Pain (ED), Patient Portal & [place] Instructions Activity Restrictions/Additional Instructions: - Return to ED with numbness in your groin or urinary, fecal incontinence - Call your doctor on Friday early a.m. when they open - At the pharmacy: Gabapentin. This is to be taken at night. It helps with peripheral nerve spasming. You can take this with your muscle relaxer. You can continue ibuprofen, and Tylenol. - You have been sent home with 1 hydrocodone. Use every 6-8 hours one half for severe pain - I am also so incredibly happy that you coordinated with Dr. Miller to fix your back. I know you will be better soon, and I am thankful for the. thank you for choosing [facility] for your healthcare needs today. You have been screened and evaluated and felt safe for discharge. Health conditions do change or evolve sometimes and as such it is important that you follow up with your Primary Doctor to be re checked, 3-5 days is a general good time frame for follow up. You are always welcome to return to the ED for re assessment if your symptoms are worsening or you have new concerns to report your visit to the ED and see if you can follow-up next week. Print Language: Slovenian Coding Level of Care Code ED Development Eng for Trent Simons
[2025-11-05] MEDS: HYDROcodone-acetaminophen 10-325 mg Tablet 1 TAB PO (00:10)
[2025-11-05] MEDS: HYDROcodone-acetaminophen 5-325 mg Tablet 1 TAB PO (00:10)
== END 2025-11-05 00:17 | disposition home or self-care (01) ==
PROVIDERS: Emergency Provider Physician Assistant
DX: M43.17 Spondylolisthesis, lumbosacral region (principal)
CPT/HCPCS: 72100; 81001; 96372; 99284; J1885; J2360; J9999